=== PATIENT | female | born 1935 | race Caucasian/White ===

== ENCOUNTER 2019-04-27 19:03 | Observation (INO) ==
[2019-04-27] MEDS ORDERED: LACTATED RINGERS 500 ML IV ONE (21:01)
[2019-04-27 21:13] LABS: Basophils % 0.2 % (0.0-0.8); Eosinophils # 0.2 10*3/uL (0.0-0.87); Eosinophils % 2.1 % (0.00-10.9); Hematocrit 41.1 VOL% (35.7-47.0); Hemoglobin 13.6 GM/DL (12.0-16.0); Immature Granulocytes % 0.5 %; Immature Granulocytes Absolute 0.04 #; Lymphocytes # 0.7 10*3/uL (1.4-4.0); Lymphocytes % 8.1 % (21.3-54.2); Mean Corpuscular HGB Conc 33.1 GM/DL (32-36); Mean Corpuscular Volume 83.9 FL (87-102); Mean Platelet Volume 9.9 FL (9.6-12.0); Monocytes % 10.2 % (1.7-12.7); Neutrophils % 78.9 % (38.7-73.9); Platelet Count 238 T/CUMM (130-400); Red Cell Distribution Width 13.1 % (9.3-17.3); White Blood Count 8.2 T/CUMM (4-12)
[2019-04-27 21:40] LABS: Albumin 4.3 G/DL (3.4-5.0); Bilirubin,Total 0.4 MG/DL (0.2-1.0); Calcium 10.3 MG/DL (8.5-10.1); Osmolality,Calculated 281.9 MOS/KG (273-304); Total Protein 8.4 G/DL (6.4-8.3)
[2019-04-27] MEDS ORDERED: SODIUM CHLORIDE 0.9% 500 ML IV STA (21:57)
[2019-04-27 22:59] LABS: CKMB % 14.1 %
[2019-04-27 23:01] LABS: Troponin I 0.208 NG/ML (0.00-0.045)
[2019-04-27 23:40] LABS: Apearance,Urine CLEAR (Clear); Bilirubin,Urine Negative (Negative); Blood, Urine Small mg/dL (Negative); Glucose,Urine (UA) Negative (Negative); Hyaline Casts,Urine 9 /LPF (0-3); Ketones,Urine 5 mg/dL (Negative); Mucus,Urine Occasional /LPF (Occasional); Nitrite,Urine Negative (Negative); Protein,Urine Negative; RBC,Urine 3 /HPF (0-4); Squamous Epithelial Cell,Urine Occasional /HPF (0-10); Urine Color Yellow (Yellow); Urine Specific Gravity 1.011 (1.001-1.035); Urine Urobilinogen < 2.0 EU/DL (0.2-1.0); WBC,Urine 1 /HPF (0-6)
[2019-04-28] MEDS ORDERED: SODIUM CHLORIDE 0.9% 1,000 ML IV SCH (01:39)
[2019-04-28] MEDS ORDERED: ACETAMINOPHEN 325 MG TABLET PO PRN (01:39)
[2019-04-28] MEDS ORDERED: ONDANSETRON 4 MG/2 ML VIAL IV PRN (01:39)
[2019-04-28] MEDS ORDERED: DOCUSATE SODIUM 100 MG CAPSULE PO PRN (01:39)
[2019-04-28] MEDS ORDERED: HEPARIN DRIP 25,000 UNITS/500 ML PREMIX IV SCH (02:00)
[2019-04-28] MEDS ORDERED: HEPARIN 5,000 UNIT/1 ML VIAL IV PRN (02:35)
[2019-04-28 04:25] LABS: Basophils % 0.2 % (0.0-0.8); Eosinophils # 0.2 10*3/uL (0.0-0.87); Eosinophils % 4.2 % (0.00-10.9); Hematocrit 31.9 VOL% (35.7-47.0); Hemoglobin 10.7 GM/DL (12.0-16.0); Immature Granulocytes % 0.4 %; Immature Granulocytes Absolute 0.02 #; Lymphocytes # 0.6 10*3/uL (1.4-4.0); Lymphocytes % 10.7 % (21.3-54.2); Mean Corpuscular HGB Conc 33.5 GM/DL (32-36); Mean Corpuscular Volume 83.7 FL (87-102); Monocytes % 10.4 % (1.7-12.7); Neutrophils % 74.1 % (38.7-73.9); Platelet Count 173 T/CUMM (130-400); Red Blood Count 3.81 MC/CUMM (3.8-5.5); Red Cell Distribution Width 13.2 % (9.3-17.3); White Blood Count 5.5 T/CUMM (4-12)
[2019-04-28 05:03] LABS: Calcium 8.8 MG/DL (8.5-10.1); Osmolality,Calculated 285.1 MOS/KG (273-304); Thyroid Stimulating Hormone 2.25 uIU/ml (0.358-3.74)
[2019-04-28 08:22] VITALS: BP 106/55
[2019-04-28] MEDS ORDERED: ATENOLOL 50 MG TABLET PO SCH (09:00)
[2019-04-28] MEDS ORDERED: ASPIRIN EC 81 MG TABLET PO SCH (09:00)
[2019-04-28] MEDS ORDERED: DIGOXIN 0.125 MG TABLET PO SCH (13:00)
[2019-04-28] MEDS ORDERED: SIMVASTATIN 10 MG TABLET PO SCH (21:00)
== END 2019-04-28 11:37 | disposition home health service (06) ==
LOC: N.EDINP 19:03 → N.ED 19:03 → N.5E 04-28 01:28
PROVIDERS: ADMIT Internal Medicine; ATTEND Internal Medicine